=== PATIENT | female | born 1970 | race Caucasian/White ===

== ENCOUNTER 2017-10-21 23:31 | Emergency (ER) | payer SELFPAY ==
[~2017-10-21] VITALS: Ht 152.4 cm; Wt 56.8 kg
[~2017-10-21 23:31] MED LIST: HYDR-4061 PO
[2017-10-21] MEDS ORDERED: LEVO50 PO (23:48)
[2017-10-22] MEDS ORDERED: IBUPROFEN 600 MG TABLET PO ONE (02:15)
[2017-10-22] MEDS ORDERED: ACETAMINOPHEN/CODEINE 300-30 MG TABLET PO ONE (02:15)
[2017-10-22] MEDS ORDERED: CEPHALEXIN MONOHYDRATE 500 MG CAPSULE PO ONE (02:15)
[2017-10-22 02:37] VITALS: BP 134/77
== END 2017-10-22 02:39 | disposition home or self-care (01) ==
LOC: EMS 23:32
DX: K02.9 Dental caries, unspecified (principal); E03.9 Hypothyroidism, unspecified
CPT/HCPCS: 99284

== ENCOUNTER 2021-11-11 08:40 | Emergency (ER) | payer MEDICAID ==
[~2021-11-11] VITALS: Ht 154.9 cm; Wt 59.1 kg
[~2021-11-11 08:40] MED LIST changes: -HYDR-4061 PO; +LEVO50 PO
[2021-11-11] MEDS ORDERED: SODIUM CHLORIDE 0.9% 1,000 ML IV ONE (09:00)
[2021-11-11] MEDS ORDERED: ONDANSETRON HCL 4 MG/2 ML VIAL IVP ONE (09:00)
[2021-11-11 09:10] LABS: BASOPHILS % (AUTO) 0.4 % (0.0-2.0); HEMATOCRIT 41.2 % (36-46); HEMOGLOBIN 13.9 g/dL (12.0-16.0); LYMPHOCYTES # (AUTO) 1.5 K/uL (1.0-4.8); LYMPHOCYTES % (AUTO) 20.3 % (22.0-44.0); MEAN CORPUSCULAR HEMOGLOBIN 28.4 pg (26.0-34.0); MEAN CORPUSCULAR HGB CONC 33.8 G/dL (31.0-37.0); MEAN CORPUSCULAR VOLUME 84 fL (80-100); MONOCYTES # (AUTO) 0.5 K/uL (0.1-1.0); MONOCYTES % (AUTO) 6.3 % (2.0-9.0); NEUTROPHILS % (AUTO) 54.8 % (40.0-70.0); PLATELET COUNT (AUTO) 246 K/uL (150-450); RED BLOOD CELL COUNT(AUTO) 4.91 MIL/uL (4.00-5.20); RED CELL DISTRIBUTION WIDTH 14.7 % (11.5-14.5)
[2021-11-11] MEDS ORDERED: PB/HYOSCY/ATR/SCOP/LIDO/MAALOX 55 ML BOTTLE PO ONE (09:15)
[2021-11-11 09:19] LABS: EOSINOPHILS % (AUTO) 18.2 % (1.0-6.0)
[2021-11-11 09:20] LABS: ANION GAP 10 mmol/L (8-16); CALCIUM, TOTAL 9.3 mg/dL (8.8-10.5); CARBON DIOXIDE 26 mmol/L (22-29); CHLORIDE 105 mmol/L (98-107); CREATININE 0.52 mg/dL (0.60-1.30); GLOMERULAR FILTR. RATE CALC > 60 mL/min (>60); GLUCOSE,RANDOM 119 mg/dL (70-110); POTASSIUM 3.6 mmol/L (3.5-5.1); SODIUM SERUM 141 mmol/L (136-145); UREA NITROGEN, BLOOD 16 mg/dL (7-18)
[2021-11-11 09:34] LABS: ALANINE AMINOTRANSFERASE 32 U/L (12-78); ALBUMIN 3.8 g/dL (3.4-5.0); ALKALINE PHOSPHATASE 112 U/L (46-116); ASPARTATE AMINOTRANSFERASE 24 U/L (15-37); BILIRUBIN,TOTAL 0.4 mg/dL (0.1-1.0); FREE T4 (FREE THYROXINE) 1.52 ng/dL (0.76-1.46); LIPASE 83 U/L (73-393); THYROID STIMULATING HORMONE 0.17 uIU/mL (0.36-3.74)
[2021-11-11] MEDS ORDERED: IOHEXOL 350 MG/ML 100 ML VIAL ONE (10:04)
[2021-11-11] MEDS ORDERED: SODIUM CHLORIDE 0.9% 100 ML ONE (10:04)
[2021-11-11 11:13] LABS: APPEARANCE,URINE CLOUDY (CLEAR); BILIRUBIN,URINE NEGATIVE (NEGATIVE); GLUCOSE, URINE (UA) NEGATIVE (NEGATIVE); KETONES,URINE NEGATIVE (NEGATIVE); LEUKOCYTE ESTERASE ,URINE NEGATIVE (NEGATIVE); NITRATE,URINE NEGATIVE (NEGATIVE); OCCULT BLOOD,URINE NEGATIVE (NEGATIVE); PROTEIN,URINE NEGATIVE (NEGATIVE); UROBILINOGEN,URINE 0.2 mg/dL (<=1.0)
[2021-11-11 12:57] LABS: ABG BASE EXCESS -3.9 mmol/L (-2.0-3.0); ABG CARBOXYHEMOGLOBIN 0.3 % (0.0-1.5); ABG HCO3 21.6 mmol/L (22.0-26.0); ABG METHEMOGLOBIN 0.2 % (0.0-1.5); ABG OXYGEN CONTENT 18.2 mL/dL (15.0-23.0); ABG OXYGEN SATURATION 95.5 % (95.0-98.0); ABG PCO2 38 mmHg (35-45); ABG PH 7.367 (7.35-7.450); ABG TOTAL HEMOGLOBIN 13.6 G/dL (12.0-18.0); PO2, ARTERIAL BG 79.9 mmHg (84.0-92.0); SOURCE, BLOOD GAS ARTERIAL; TEMPERATURE, FAHRENHEIT, BG 98.6 FAHREN (96.0-98.6)
[2021-11-11 12:58] LABS: ABG A-A DIFF O2 24.1 mmHg (10-20.0); SITE, BLOOD GAS LFT RADIAL
[2021-11-11 13:43] VITALS: BP 140/77
[2021-11-11] MEDS ORDERED: PredniSONE 20 MG TABLET PO ONE (13:45)
[2021-11-11] MEDS ORDERED: PRED20 PO (13:47)
[2021-11-11] MEDS ORDERED: ONDA-104 PO (13:47)
== END 2021-11-11 14:58 | disposition home or self-care (01) ==
LOC: EMS 08:42
DX: K65.4 Sclerosing mesenteritis (principal); K76.0 Fatty (change of) liver, not elsewhere classified; R10.84 Generalized abdominal pain; R11.2 Nausea with vomiting, unspecified; E03.9 Hypothyroidism, unspecified; Z79.899 Other long term (current) drug therapy
CPT/HCPCS: 36415; 36600; 74022; 74177; 76700; 80053; 81003; 82805; 83690; 84439; 84443; 84484; 85025; 93005; 96361; 96374; 99285; J2405; J7030; J7050; Q9967